=== PATIENT | male | born 1990 | race Hispanic/Latino ===

== ENCOUNTER 2019-01-26 20:41 | Emergency (ER) | payer MEDICAID, OTHER ==
[2019-01-26] MEDS ORDERED: TETANUS/DIPHTHERIA TOXOID [ADULT] 0.5 ML VIAL IM ONE (22:03)
== END 2019-01-26 23:40 | disposition home or self-care (01) ==
LOC: EDH 20:41
DX: S06.0X0A Concussion without loss of consciousness, initial encounter (principal); S50.812A Abrasion of left forearm, initial encounter; S80.212A Abrasion, left knee, initial encounter; S40.212A Abrasion of left shoulder, initial encounter; V19.88XA Pedal cyclist (driver) (passenger) injured in other specified transport accidents, initial encounter; Y93.55 Activity, bike riding; Y92.89 Other specified places as the place of occurrence of the external cause; Y99.8 Other external cause status
CPT/HCPCS: 70450; 90471; 90714